=== PATIENT | female | born 1960 | race Caucasian/White ===

== ENCOUNTER 2020-04-21 09:31 | Emergency (ER) | payer MEDICAID ==
[~2020-04-21] VITALS: Ht 157.5 cm; Wt 87.5 kg
[~2020-04-21 09:31] MED LIST: ATEN1TAB38; DEXELENT; LEVO1TAB69; PERCOT
[2020-04-21] MEDS ORDERED: HYDROcodone-ACET 5/325MG TAB PO ONE (10:30)
[2020-04-21 10:42] VITALS: BP 133/78
== END 2020-04-21 10:57 | disposition home or self-care (01) ==
LOC: ER 09:31
DX: M79.652 Pain in left thigh (principal); Z85.831 Personal history of malignant neoplasm of soft tissue; Z76.0 Encounter for issue of repeat prescription; E11.9 Type 2 diabetes mellitus without complications; Z88.2 Allergy status to sulfonamides